=== PATIENT | female | born 2000 | race Caucasian/White ===

== ENCOUNTER 2022-07-20 11:45 | Emergency (ER) | payer SELFPAY ==
[~2022-07-20] VITALS: Ht 170.2 cm; Wt 108.8 kg
[2022-07-20] MEDS ORDERED: LORazepam INJ 2 MG/ML (ATIVAN) VIAL IVP PRN (12:00)
[2022-07-20] MEDS ORDERED: NS IV 1000 ML 1,000 ML IV SCH (12:00)
--- NOTE | 2022-07-20 12:03 | ED General ---
General Chief Complaint: Respiratory Problems Stated Complaint: SOA Nursing Triage Note: PT BROUGHT IN BY [facility] FROM HOME WITH COMPLAINT OF SOA AND HIGH HR AFTER TAKING A 50MG CBD GUMMY THAT SHE [place]OU[place] FROM [place]. STATES TOOK THE GUMMY AROUND 9-930 AM. Source of Information: Patient, EMS Exam Limitations: No Limitations History of Present Illness Date Seen by Provider: Jul 20, 2022 Time Seen by Provider: 11:48 Initial Comments 21-year-old female brought in by EMS for possible medication reaction. She took a 50 mg CBD gummy that she got at the gas station. After about 30 minutes she started to have sweating, shortness of breath, fast heart rate and lightheadedness. She had never taken CBD prior and does not smoke marijuana. She denies any other recent illness and was feeling fine before ingestion of CBD. All other systems reviewed and negative except documented per HPI. Voice recognition software was used to help create this chart Allergies and Home Medications Allergies Coded Allergies: oxycodone (Verified Allergy, Unknown, 07/20/22) Patient Home Medication List Home Medication List Reviewed: Yes Review of Systems Review of Systems Constitutional: see HPI Past Snfalxq-Eephda-Mlznud Hx Patient Social History Tobacco Use?: No Use of E-Cig and/or Vaping dev: No Substance use?: Yes Additional substance use comme: cbd Alcohol Use?: No Pt feels they are or have been: No Physical Exam Vital Signs Vital Signs - First Documented 07/20/22 11:45 Temp 37.0 Pulse 132 Resp 19 B/P (MAP) 150/102 (118) Pulse Ox 100 O2 Delivery Room Air Capillary Refill : Less Than 3 Seconds Height, Weight, BMI Height: '" Weight: lbs. oz. kg; 37.00 BMI Method: General Appearance: Other (Diaphoretic, somnolent, anxious) HEENT: PERRL/EOMI, Normal ENT Inspection, Pharynx Normal Neck: Full Range of Motion, Normal Inspection, Non Tender, Supple Respiratory: Lungs Clear, Normal Breath Sounds, No Accessory Muscle Use Cardiovascular: No Murmur, Normal Peripheral Pulses, Tachycardia Gastrointestinal: Normal Bowel Sounds, Non Tender, Soft Extremity: Normal Capillary Refill, Normal Inspection, Normal Range of Motion, Non Tender, No Calf Tenderness Neurologic/Psychiatric: Alert, Oriented x3, No Motor/Sensory Deficits Skin: Normal Color, Diaphoresis Progress/Results/Core Measures Suspected Sepsis SIRS Temperature: Pulse: 132 Respiratory Rate: 19 Laboratory Tests 07/20/22 11:56: White Blood Count 10.9 Blood Pressure 150 /102 Mean: 118 Laboratory Tests 07/20/22 11:56: Creatinine 0.80, Platelet Count 315 Results/Orders Lab Results Laboratory Tests Test 07/20/22 11:56 07/20/22 15:26 Range/Units White Blood Count 10.9 4.3-11.0 10^3/uL Red Blood Count 4.97 3.80-5.11 10^6/uL Hemoglobin 14.6 11.5-16.0 g/dL Hematocrit 41 35-52 % Mean Corpuscular Volume 83 80-99 fL Mean Corpuscular Hemoglobin 29 25-34 pg Mean Corpuscular Hemoglobin Concent 35 32-36 g/dL Red Cell Distribution Width 12.6 10.0-14.5 % Platelet Count 315 130-400 10^3/uL Mean Platelet Volume 9.7 9.0-12.2 fL Immature Granulocyte % (Auto) 1 % Neutrophils (%) (Auto) 48 42-75 % Lymphocytes (%) (Auto) 41 12-44 % Monocytes (%) (Auto) 9 0-12 % Eosinophils (%) (Auto) 1 0-10 % Basophils (%) (Auto) 1 0-10 % Neutrophils # (Auto) 5.2 1.8-7.8 10^3/uL Lymphocytes # (Auto) 4.5 H 1.0-4.0 10^3/uL Monocytes # (Auto) 1.0 0.0-1.0 10^3/uL Eosinophils # (Auto) 0.1 0.0-0.3 10^3/uL Basophils # (Auto) 0.1 0.0-0.1 10^3/uL Immature Granulocyte # (Auto) 0.1 0.0-0.1 10^3/uL Sodium Level 137 135-145 MMOL/L Potassium Level 3.4 L 3.6-5.0 MMOL/L Chloride Level 105 98-107 MMOL/L Carbon Dioxide Level 20 L 21-32 MMOL/L Anion Gap 12 5-14 MMOL/L Blood Urea Nitrogen 17 7-18 MG/DL Creatinine 0.80 0.60-1.30 MG/DL Estimat Glomerular Filtration Rate 107 BUN/Creatinine Ratio 21 Glucose Level 95 70-105 MG/DL Calcium Level 10.0 8.5-10.1 MG/DL Serum Test, Qualitative NEGATIVE NEGATIVE Urine Opiates Screen NEGATIVE NEGATIVE Urine Oxycodone Screen NEGATIVE NEGATIVE Urine Methadone Screen NEGATIVE NEGATIVE Urine Propoxyphene Screen NEGATIVE NEGATIVE Urine Barbiturates Screen NEGATIVE NEGATIVE Ur Tricyclic Antidepressants Screen NEGATIVE NEGATIVE Urine Phencyclidine Screen NEGATIVE NEGATIVE Urine Amphetamines Screen NEGATIVE NEGATIVE Urine Methamphetamines Screen NEGATIVE NEGATIVE Urine Benzodiazepines Screen NEGATIVE NEGATIVE Urine Cocaine Screen NEGATIVE NEGATIVE Urine Cannabinoids Screen POSITIVE H NEGATIVE My Orders Orders - ERWIN LAU DO Basic Metabolic Panel (07/20/22 11:59) Cbc With Automated Diff (07/20/22 11:59) Hcg,Qualitative Serum (07/20/22 11:59) Ns Iv 1000 Ml (Sodium Chloride 0.9%) (07/20/22 12:00) Lorazepam Injection (Ativan Injection) (07/20/22 12:00) Chest 1 View, Ap/Pa Only (07/20/22 13:33) Drug Screen Stat (Urine) (07/20/22 15:12) Medications Given in ED Current Medications Medications Dose Ordered Sig/Kirill Route Start Time Stop Time Status Last Admin Dose Admin Lorazepam 1 mg ONCE PRN IVP 07/20/22 12:00 07/20/22 12:13 1 MG Vital Signs/I&O 07/20/22 11:45 Temp 37.0 Pulse 132 Resp 19 B/P (MAP) 150/102 (118) Pulse Ox 100 O2 Delivery Room Air Capillary Refill : Less Than 3 Seconds Blood Pressure Mean: 118 ECG Comment Sinus tachycardia with a rate of 135 beats minute. Normal intervals. Normal axis. No ST or T wave abnormalities. No ectopy Departure Communication (Admissions) Patient is hemodynamically stable. She was initially quite altered, writhing in the bed with some sonorous respirations though she maintained normal oxygen saturation, respiratory rate. She is tachycardic. The obtain labs, urine drug screen rule out any other medical emergencies. Also did an EKG which showed sinus rhythm. She was given Ativan initially which did seem to help calm her some. Over the course of significant observation about 3 to 4 hours she came less and less tachycardic. She is now alert and oriented and feels almost back to normal. Impression Primary Impression: Altered mental status Qualified Codes: R41.82 - Altered mental status, unspecified Disposition: 01 HOME, SELF-CARE Condition: Stable Departure-Patient Inst. Referrals: [facility] (PCP/Family) Primary Care Physician Patient Instructions: Altered Mental Status (DC) Add. Discharge Instructions: I think your symptoms are related to CBD ingestion today. Increase her fluids at home, rest. This should only last another couple of hours. Return to the emergency department for any severe concerns. All discharge instructions reviewed with patient and/or family. Voiced understanding. ERWIN LAU DO Jul 20, 2022 12:03
[2022-07-20 12:09] LABS: BASOPHILS # (AUTO) 0.1 10^3/uL (0.0-0.1); BASOPHILS % (AUTO) 1 % (0-10); EOSINOPHILS # (AUTO) 0.1 10^3/uL (0.0-0.3); EOSINOPHILS % (AUTO) 1 % (0-10); HEMATOCRIT 41 % (35-52); HEMOGLOBIN 14.6 g/dL (11.5-16.0); LYMPHOCYTES # (AUTO) 4.5 10^3/uL (1.0-4.0); LYMPHOCYTES % (AUTO) 41 % (12-44); MEAN CORPUSCULAR HEMOGLOBIN 29 pg (25-34); MEAN CORPUSCULAR HGB CONC 35 g/dL (32-36); MEAN CORPUSCULAR VOLUME 83 fL (80-99); MEAN PLATELET VOLUME 9.7 fL (9.0-12.2); MONOCYTES % (AUTO) 9 % (0-12); NEUTROPHILS # (AUTO) 5.2 10^3/uL (1.8-7.8); NEUTROPHILS % (AUTO) 48 % (42-75); PLATELET COUNT 315 10^3/uL (130-400); WHITE BLOOD COUNT 10.9 10^3/uL (4.3-11.0)
[2022-07-20 12:29] LABS: POTASSIUM 3.4 MMOL/L (3.6-5.0)
[2022-07-20 12:35] LABS: CREATININE SERUM 0.8 MG/DL (0.60-1.30)
--- NOTE | 2022-07-20 13:57 | Diagnostic Imaging Report ---
INDICATION: Dyspnea. COMPARISON: None available. TECHNIQUE: Single radiograph of the chest dated 07/20/2022. FINDINGS: The cardiac silhouette is within normal limits in size. No significant pulmonary vascular congestion. The lungs are clear. No pleural effusion. No pneumothorax. No acute osseous abnormality. IMPRESSION: No acute cardiopulmonary abnormality. Dictated by: Dictated on workstation # [id number]
[2022-07-20 15:46] LABS: AMPHETAMINE SCREEN, URINE NEGATIVE (NEGATIVE); BARBITURATE SCREEN URINE NEGATIVE (NEGATIVE); BENZODIAZEPINES SCREEN URINE NEGATIVE (NEGATIVE); CANNABINOID SCREEN, URINE POSITIVE (NEGATIVE); COCAINE SCREEN URINE NEGATIVE (NEGATIVE); METHADONE STAT NEGATIVE (NEGATIVE); OPIATE SCREEN URINE NEGATIVE (NEGATIVE); OXYCODONE STAT NEGATIVE (NEGATIVE); PROPOXYPHENE STAT NEGATIVE (NEGATIVE); TRICYCLIC ANTIDEPRESSANTS SCRE NEGATIVE (NEGATIVE)
[2022-07-20 16:16] VITALS: BP 145/83
== END 2022-07-20 16:22 | disposition home or self-care (01) ==
LOC: ER 11:50
DX: R41.82 Altered mental status, unspecified (principal); R00.0 Tachycardia, unspecified
CPT/HCPCS: 36415; 71045; 80048; 80306; 84703; 85025; 93005